=== PATIENT | female | born 1990 | race African-American/Black ===

== ENCOUNTER 2017-05-14 00:14 | Emergency (ER) | payer MEDICARE, OTHER ==
[~2017-05-14] VITALS: Ht 175.3 cm; Wt 121.3 kg
[2017-05-14 02:49] LABS: HCG UR LOT HCG7030192
[2017-05-14 02:54] LABS: HCG UR OBC PASS
[2017-05-14 03:05] VITALS: BP 126/67
[2017-05-14] MEDS ORDERED: CEFTRIAXONE 1,000 MG ONE (03:47)
[2017-05-14] MEDS ORDERED: AZITHROMYCIN 500 MG TABLET ONE (03:47)
[2017-05-14] MEDS ORDERED: CEFTRIAXONE 250 MG IM ONE (04:00)
[2017-05-14] MEDS ORDERED: AZITHROMYCIN 500 MG TABLET PO ONE (04:00)
== END 2017-05-14 04:11 | disposition home or self-care (01) ==
LOC: ED 02:30
DX: N89.8 Other specified noninflammatory disorders of vagina (principal)
CPT/HCPCS: 81003; 81025; 87210; 87491; 87591; 87808; 96372; 99284; J0696